=== PATIENT | male | born 1955 | race Two or more races ===

== ENCOUNTER 2016-03-23 17:55 | Emergency (ER) | payer OTHER ==
[2016-03-23] MEDS ORDERED: KETOROLAC TROMETHAMINE 30 MG/ML SOL IV ONE (18:13)
[2016-03-23] MEDS ORDERED: KETOROLAC TROMETHAMINE 30 MG/ML SOL ONE (18:14)
[2016-03-23] MEDS: SODIUM CHLORIDE 0.9% FLUSH 10 ML SOL IV PRN ×2 (18:16→19:02)
[2016-03-23] MEDS ORDERED: LIDOCAINE 5% PATCH 1 PATCH TDM TOP ONE (18:47)
[2016-03-23] MEDS ORDERED: DIAZEPAM 5MG/ML SOL IV ONE (18:47)
[2016-03-23] MEDS ORDERED: DIAZEPAM 5MG/ML SOL ONE (18:56)
[2016-03-23 19:22] VITALS: BP 140/90; PULSE 79; RESP 20; TEMP 98.7; O2SAT 96
== END 2016-03-23 19:12 | disposition home or self-care (01) | DRG 563 ==
LOC: ED 17:55
DX: S43.401A Unspecified sprain of right shoulder joint, initial encounter (principal); W19.XXXA Unspecified fall, initial encounter; Y92.59 Other trade areas as the place of occurrence of the external cause
CPT/HCPCS: 73030; 96374; 96375; 99282; 99284; J1885; J3360